=== PATIENT | female | born 1965 | race Caucasian/White ===

== ENCOUNTER → 2019-12-22 08:36 | Outpatient (BNVA) | payer SELFPAY | PROVIDERS: Family Provider Family Medicine; PCP Family Medicine; Visit Provider Family Medicine | DX: Z13.6 Encounter for screening for cardiovascular disorders (principal); E03.9 Hypothyroidism, unspecified; M18.11 Unilateral primary osteoarthritis of first carpometacarpal joint, right hand | CPT/HCPCS: 80053; 80061; 84443 ==

== ENCOUNTER 2020-03-07 08:04 | Outpatient (CLI) | payer OTHER, SELFPAY ==
--- NOTE | 2020-03-07 08:14 | MM_ITS ---
WS: [id number] BILATERAL DIGITAL SCREENING MAMMOGRAPHY WITH CAD CLINICAL INFORMATION: SCREENING HISTORY: Screening mammogram. No current complaints. COMPARISON: July 21, 2013 TECHNIQUE: Bilateral CC and MLO views. FINDINGS: The breasts are composed of heterogeneous fibroglandular density tissue, which can limit the detectio n of small underlying mass lesions. Multiple ovoid nodular densities both breasts are similar in appe arance the prior examinations. Most of these appear to represent intramammary lymph nodes and are not significantly changed since 2013. No suspicious mass, asymmetry, calcifications, or architectural di stortion. No evidence of malignancy. MM/[place] [id number] IMPRESSION: BI-RADS: 2-Benign FOLLOW UP: 1 Year Follow-up Recommend return to annual screening mammography.
== END 2020-03-07 08:05 | disposition home or self-care (01) ==
PROVIDERS: Family Provider Family Medicine; PCP Family Medicine; Visit Provider Family Medicine
DX: Z12.31 Encounter for screening mammogram for malignant neoplasm of breast (principal)
CPT/HCPCS: 77067

== ENCOUNTER → 2020-03-29 09:21 | Outpatient (BNVA) | payer SELFPAY | PROVIDERS: Family Provider Family Medicine; PCP Family Medicine; Visit Provider Family Medicine | DX: E03.9 Hypothyroidism, unspecified (principal) | CPT/HCPCS: 84443 ==

== ENCOUNTER → 2020-04-21 08:38 | Outpatient (BNVA) | payer SELFPAY | PROVIDERS: Family Provider Family Medicine; PCP Family Medicine; Visit Provider Obstetrics & Gynecology | DX: N95.0 Postmenopausal bleeding (principal) | CPT/HCPCS: 83001; 84443; 85025 ==

== ENCOUNTER → 2020-04-24 09:39 | Outpatient (BNVA) | payer SELFPAY | PROVIDERS: Family Provider Family Medicine; PCP Family Medicine; Visit Provider Obstetrics & Gynecology | DX: N95.0 Postmenopausal bleeding (principal); N85.8 Other specified noninflammatory disorders of uterus | CPT/HCPCS: 76830 ==

== ENCOUNTER → 2021-10-23 08:52 | Outpatient (BNVA) | payer OTHER, SELFPAY | PROVIDERS: Family Provider Family Medicine; PCP Family Medicine; Visit Provider Nurse Practitioner Psychiatric/Mental Health | DX: Z79.899 Other long term (current) drug therapy (principal); R45.6 Violent behavior; G24.09 Other drug induced dystonia; T50.905A Adverse effect of unspecified drugs, medicaments and biological substances, initial encounter; F33.3 Major depressive disorder, recurrent, severe with psychotic symptoms; F43.12 Post-traumatic stress disorder, chronic; F17.210 Nicotine dependence, cigarettes, uncomplicated; F15.21 Other stimulant dependence, in remission | CPT/HCPCS: 80053; 80061; 83036 ==

== ENCOUNTER → 2022-09-06 10:20 | Outpatient (BNVA) | payer SELFPAY | PROVIDERS: Family Provider Family Medicine; PCP Family Medicine; Visit Provider Family Medicine | DX: E03.9 Hypothyroidism, unspecified (principal); Z13.6 Encounter for screening for cardiovascular disorders | CPT/HCPCS: 80053; 80061; 84439; 84443; 85025 ==

== ENCOUNTER → 2022-09-13 09:01 | Outpatient (BNVA) | payer OTHER, SELFPAY | PROVIDERS: Family Provider Family Medicine; PCP Family Medicine; Visit Provider Nurse Practitioner Psychiatric/Mental Health | DX: Z79.899 Other long term (current) drug therapy (principal); Z03.89 Encounter for observation for other suspected diseases and conditions ruled out | CPT/HCPCS: 80307; 83036 ==

== ENCOUNTER → 2023-11-24 10:06 | Outpatient (BNVA) | payer BC, SELFPAY | PROVIDERS: Family Provider Family Medicine; PCP Family Medicine Adult Medicine; Visit Provider Nurse Practitioner Family | DX: J98.4 Other disorders of lung (principal); R06.09 Other forms of dyspnea | CPT/HCPCS: 71046 ==

== ENCOUNTER → 2023-11-28 14:46 | Outpatient (BNVA) | payer BC, SELFPAY | PROVIDERS: Family Provider Family Medicine; PCP Family Medicine; Visit Provider Nurse Practitioner Psychiatric/Mental Health | DX: Z79.899 Other long term (current) drug therapy (principal) | CPT/HCPCS: 80053; 80061; 83036 ==

== ENCOUNTER → 2023-12-24 10:50 | Outpatient (BNVA) | payer BC, SELFPAY | PROVIDERS: Family Provider Family Medicine; PCP Family Medicine Adult Medicine; Visit Provider Nurse Practitioner Psychiatric/Mental Health | DX: Z79.899 Other long term (current) drug therapy (principal) | CPT/HCPCS: 82306; 84439; 84443; 85025 ==

== ENCOUNTER → 2024-04-13 10:06 | Outpatient (BNVA) | payer BC, SELFPAY | PROVIDERS: Family Provider Family Medicine; PCP Family Medicine Adult Medicine; Visit Provider Nurse Practitioner Psychiatric/Mental Health | DX: Z79.899 Other long term (current) drug therapy (principal) | CPT/HCPCS: 80053; 82306; 82607; 83540; 84443; 85025 ==

== ENCOUNTER → 2024-07-12 16:03 | Outpatient (BNVA) | payer BC, SELFPAY | PROVIDERS: Family Provider Family Medicine; PCP Family Medicine; Visit Provider Family Medicine | DX: E03.9 Hypothyroidism, unspecified (principal); E55.9 Vitamin D deficiency, unspecified; L25.9 Unspecified contact dermatitis, unspecified cause; J44.9 Chronic obstructive pulmonary disease, unspecified; R63.4 Abnormal weight loss | CPT/HCPCS: 80053; 82306; 84439; 84443; 85025 ==

== ENCOUNTER → 2024-07-19 07:57 | Outpatient (BNVA) | payer BC, MEDICAID, SELFPAY | PROVIDERS: Family Provider Family Medicine; PCP Family Medicine; Visit Provider Family Medicine | DX: E03.9 Hypothyroidism, unspecified (principal); R63.4 Abnormal weight loss; E55.9 Vitamin D deficiency, unspecified | CPT/HCPCS: 80053; 82306; 84439; 84443 ==

== ENCOUNTER 2024-07-27 08:45 | Outpatient (CLI) | payer BC, MEDICAID, SELFPAY ==
--- NOTE | 2024-07-27 09:00 | CT_ITS ---
WS: [id number] LDCT LUNG CANCER SCREENING HISTORY: screening TECHNIQUE: Axial imaging performed from the apices to 1 cm below the costophrenic angles. Coronal and sagittal reformats are submitted with axial MIP series. All CT scans at [facility] use at least one of these dose optimization techniques: automated exposure control; mA and/or kV adjustment per patient size (includes targeted exams where dose is matched to clinical indication); or iterative reconstruction. DLP: 40.41 mGy.cm DIvol: Mean CTDIvol: 0.60 (mGy) COMPARISON: None available. Diagnostic quality: Satisfactory Lungs: Hyperinflated lungs. There are a few areas of scattered groundglass attenuation. Groundglass attenuation with vague solid component towards the superior segment RIGHT lower lobe measures 2.0 x 1.8 cm. Subsolid component is 0.9 cm. This is the most concerning subsolid pacification. 3 mm noncalcified nodule LEFT upper lobe, image 73 series 4. 2 mm nodule image 47 series 4 RIGHT upper lobe. 6 mm nodule RIGHT upper lobe abuts the fissure. Heart: Normal size heart with no pericardial effusion.. Other findings: Atherosclerosis aorta. Normal size pulmonary artery. No adrenal mass. Increase in thoracic kyphosis. Mild anterior wedging of a central thoracic vertebral body. CT/CT lung screening [id number] IMPRESSION: LUNG-RADS: 4B-Suspicious FOLLOW UP: PET/CT recommended OTHER FINDINGS (S MODIFIER): None.
== END 2024-07-27 08:46 | disposition home or self-care (01) ==
PROVIDERS: PCP Family Medicine; Visit Provider Family Medicine
DX: Z12.2 Encounter for screening for malignant neoplasm of respiratory organs (principal); F17.219 Nicotine dependence, cigarettes, with unspecified nicotine-induced disorders; R91.8 Other nonspecific abnormal finding of lung field; I70.0 Atherosclerosis of aorta; M40.294 Other kyphosis, thoracic region; M48.54XA Collapsed vertebra, not elsewhere classified, thoracic region, initial encounter for fracture
CPT/HCPCS: 71271

== ENCOUNTER 2024-07-30 14:49 | Outpatient (CLI) | payer BC, MEDICAID, SELFPAY ==
--- NOTE | 2024-07-30 15:00 | PETR_ITS ---
PROCEDURE INFORMATION: Exam: PET/CT Skull Base to Mid-thigh Exam date and time: 07/30/2024 3:54 PM Age: 59 years old Clinical indication: Abnormal findings; CT lung scree 07/27/24; Additional info: Right lung mass / unintentional weight loss LABS AND CLINICAL REPORTS: Glucose: 85 mg/dl Treatment strategy for malignancy (PET staging): Initial Staging (PI) TECHNIQUE: Imaging protocol: Following at least four-hour fasting and following the injection of radiopharmaceutical, low dose CT images were obtained. Then, PET images were obtained. Attenuation corrected images were constructed using the CT scan. Fused images of PET and CT were reviewed. The standardized uptake values (SUV) reported below are maximum values within a region of interest, expressed in gm/ml. Exam includes orbital meatal line to mid-thigh. SUV normalization method: BodyWeight Radiopharmaceutical: 9.28 mCi F-18 FDG (Fluorodeoxyglucose), IV. Time of imaging post radiopharmaceutical administration: 46 minutes Injection site: right ac COMPARISON: CT lung screening [id number] 07/27/2024, CT lumbar spine 06/09/2018, MRI lumbar spine 08/26/2018 FINDINGS: Brain: Normal physiologic uptake. Pharynx: No abnormal uptake. Larynx: No abnormal uptake. Lungs, pleura and trachea: 2.5 cm part solid right lower lobe opacity measures 2.6 SUV. About 2.4 x 1.3 cm non nodular shaped pure ground-glass right upper lobe opacity on axial image 84 measures 1.6 SUV. 0.8 cm ground-glass opacity nodule posteriorly in the right upper lobe on axial image 83 measures 0.8 SUV. Subcentimeter focus of higher uptake of 4.9 SUV in the right upper lobe present in the central peribronchial/perivascular location on axial image 80 with no obvious corresponding lung nodule. No pleural effusion. Heart: No abnormal uptake.There is no cardiomegaly. Coronary artery calcification is present. There is no pericardial effusion. Mediastinal space: Small linear linear focus of increased uptake of 5.5 SUV adjacent to the left posterior wall of the descending thoracic aorta at T9 level (axial image 104) is indeterminate. Esophagus: Diffusely increased uptake in the esophagus up to 6.6 SUV with no abnormal dilatation or wall thickening for clinical correlation with esophagitis. Liver: No abnormal uptake. Maximum uptake is for SUV. Gallbladder and biliary ducts: No abnormal uptake. Pancreas: No abnormal uptake. Spleen: No abnormal uptake. No splenomegaly. Adrenal glands: No abnormal uptake. No nodules. Kidneys and ureters: Normal physiologic uptake. No hydronephrosis. Bilateral nonobstructive small renal stones. Stomach and bowel: Long segment of increased uptake in the cecum and ascending colon with no corresponding CT abnormality is likely benign. Vasculature: No abnormal uptake. No aortic aneurysm. Lymph nodes: No FDG avid lymphadenopathy in the neck, chest, abdomen, pelvis, and extremities. Small calcified granulomas in normal size periportal and portacaval lymph nodes. Skeleton: Increased synovial uptake in the shoulders is likely benign. Soft tissues: No abnormal uptake in the visualized head, neck, chest, abdomen, pelvis, and extremities. Other findings: Increased uptake of 5.4 SUV is noted within the central spinal canal at T12-L1 level for the maximum length of 2.5 cm in the expected location of conus medullaris. This level of uptake is higher than expected for usual physiologic activity in the spinal cord. PET/PET skull to thigh INIT [id number] IMPRESSION: 1. 2.5 cm part solid right lower low lung opacity measures 2.6 SUV. Malignancy cannot be excluded. No abnormal uptake in other purely ground-glass opacities in the right lung. Subcentimeter focus of higher uptake of 4.9 SUV in the perihilar location in the right upper lobe with no corresponding parenchymal lung nodule is indeterminate. No FDG avid lymphadenopathy in the chest. No FDG avid findings outside of the chest concerning for metastatic disease. 2. Diffusely increased uptake in the esophagus with no abnormal dilatation or wall thickening for clinical correlation with esophagitis. 3. Small linear focus of increased uptake along the left posterior wall of the mid/lower descending thoracic aorta is of indeterminate etiology and clinical significance since no obvious masslike lesion or nodule is identified in this area. 4. The uptake in the expected location of conus medullaris of the spinal cord is slightly higher than expected for normal physiologic activity. No abnormality was present in this area on prior imaging of the lumbar spine obtained in 2019. Depending on degree of clinical suspicion this finding can be followed or further evaluated with contrast enhanced MRI.
== END 2024-07-30 14:50 | disposition home or self-care (01) ==
PROVIDERS: PCP Family Medicine; Visit Provider Family Medicine
DX: R91.8 Other nonspecific abnormal finding of lung field (principal); I25.10 Atherosclerotic heart disease of native coronary artery without angina pectoris; R93.89 Abnormal findings on diagnostic imaging of other specified body structures; N20.0 Calculus of kidney; R59.0 Localized enlarged lymph nodes
CPT/HCPCS: 78815; A9552

== ENCOUNTER 2024-08-17 06:21 | Day surgery (SDC) | payer BC, MEDICAID, SELFPAY ==
[2024-08-17 06:35] VITALS: BP 146/104; PULSE 111; RESP 16; TEMP 36.5; O2SAT 94; BMI 16.5
[2024-08-17] MEDS: sodium chloride 0.9% 1,000 ML 15 ML IV (06:49)
--- NOTE | 2024-08-17 06:51 | ANES.PREANE2 ---
Pre-Anesthetic Assessment Height/Weight: Height 5 ft 2 in Weight 90 lb Temp Pulse Resp BP Pulse Ox O2 Del Method 97.7 F 111 H 16 146/104 94 Room Air 08/17/24 06:35 08/17/24 06:35 08/17/24 06:35 08/17/24 06:35 08/17/24 06:35 08/17/24 06:35 Preop Diagnosis: Screening colonoscopy Operation Date: 08/17/24 07:30 Proposed Procedures p EGD 65122 15150 G0121, R63.4 Z12.11(Not Applicable) - Roque Lopez MD s Colonoscopy(Not Applicable) - Roque Lopez MD Was Beta Salena taken within 24 hours: N/A Was Clonidine taken within 24 hours: N/A Last intake: Intake Last Liquid Date 08/16/24 Last Liquid Time 19:30 Last Solid Date 08/15/24 Last Solid Time 19:00 Social Tobacco and No alcohol Exam alert, oriented x 3 and regular rate & rhythm Decreased breath sounds bilaterally Airway Submandibular: within normal limits Cervical ROM: within normal limits Mallampati: Class II Dentition: false Comments: Comments: No bottom teeth, dentures on top Anesthetic Plan ASA status: 3 Anesthesia: MAC Other: No prior issues with anesthesia Completed bowel prep COPD, current smoker Patient has a lung mass that she is following with oncology for. No home O2 Haldol at night Labs from June reviewed and acceptable for procedure Plan for Mac Anesthesia Medications/Allergies Home Medications ?Medication ?Instructions ?Recorded ?Confirmed ?Last Taken ?Type multivitamin 1 tab PO QAM 04/07/19 08/17/24 08/16/24 History lorazepam 1 mg tablet 1 mg PO TID #90 tabs 06/29/24 08/17/24 08/16/24 Rx haloperidol 0.5 mg tablet 0.5 mg PO BEDTIME severe agitation 07/09/24 08/17/24 08/16/24 Rx #30 tabs fluticasone 250 mcg-salmeterol 50 1 inh inhalation BID #60 ea 07/12/24 08/17/24 08/16/24 Rx mcg/dose blistr powdr for inhalation (Advair Diskus) triamcinolone acetonide 0.1 % 1 applic topical BID #80 grams 07/12/24 08/17/24 08/16/24 Rx topical cream albuterol sulfate 90 mcg/actuation 2 puff inhalation Q6H PRN 08/02/24 08/17/24 08/16/24 Rx aerosol inhaler (Ventolin HFA) shortness of breath or wheezing #8.5 grams escitalopram oxalate 20 mg tablet 20 mg PO QAM 08/16/24 08/17/24 08/16/24 History (Lexapro) valbenazine 60 mg capsule 60 mg PO QAM 08/16/24 08/17/24 08/16/24 History (Ingrezza) Allergies Allergy/AdvReac Type Severity Reaction Status Date / Time No Known Allergies Allergy Verified 08/17/24 06:33 Current Medications Generic Name Dose Route Start Last Admin Trade Name Freq PRN Reason Stop Dose Admin Sodium Chloride 1,000 mls @ 15 mls/hr 08/17/24 06:24 08/17/24 06:49 Sodium Chloride 0.9% IV 08/18/24 06:23 15 mls/hr .Q24H PRN Administration COLONOSCOPY FLUIDS PFSH Anesthesia Medical History Bereavement Loss of 13 yr grandson, by suicide 05/13/23 Generalized anxiety disorder Tardive dyskinesia prescribed and taking Ingrezza Other stimulant dependence, in remission methamphetamines, in sustained remission, September 2019 Psychiatric care Hypothyroidism Violent behavior History of Major depressive disorder, recurrent episode, severe with mood-congruent psychotic features Nicotine dependence, cigarettes, uncomplicated Chronic post-traumatic stress disorder Surgical History S/P appendectomy performed with section H/O section Family History Mother Diabetes Sister Thyroid disease Denies family history of Colon cancer Ovarian cancer Clotting disorder Heart disease Hyperlipidemia Breast cancer Anesthesia complication Bleeding disorder Hypertension Uterine cancer Stroke Social History Smoking and tobacco/nicotine status: current every day tobacco/nicotine user cigarettes Alcohol intake: current Alcohol intake frequency: holidays/special occasions only Alcohol type: hard liquor Substance/Drug Use: never
--- NOTE | 2024-08-17 06:57 | W.PM.OPSUD ---
Surgery/Procedure H&P Update DATE OF PROCEDURE: August 17, 2024 DATE H&P PERFORMED: 07/22/24 H&P UPDATE INFORMATION: I have reviewed H&P completed within last 30 days, I have examined patient prior to procedure and Changes to prior documentation as noted here CHANGES TO PREVIOUS DOCUMENTATION: EGD will be done as well for unintentional weight loss. Risks and benefits discussed. PREOP DIAGNOSIS: Screening colonoscopy, unquantified weight loss PLANNED PROCEDURE: Operation Date: 08/17/24 07:30 Proposed Procedures p EGD [id number] 08906 G0121, R63.4 Z12.11(Not Applicable) - Roque Lopez MD s Colonoscopy(Not Applicable) - Roque Lopez MD
[2024-08-17 08:36] VITALS: BP 135/80; PULSE 72; RESP 16; TEMP 36.3; O2SAT 100
[2024-08-17 08:49] VITALS: BP 140/84; PULSE 69; RESP 16; TEMP 36.2; O2SAT 97
--- NOTE | 2024-08-17 09:12 | ANE.PACU2 ---
Inpatient post-anesthesia follow up: Airway intact: Yes Vital signs: Temperature 97.2 F Pulse Rate 69 Respiratory Rate 16 Blood Pressure 140/84 Pulse Oximetry 97 Oxygen Delivery Me thod Room Air Oxygen Flow Rate Fraction of Inspir ed Oxygen Hydration adequate: Yes Nausea and vomiting: No Pain level: 1 Mental status: Baseline
== END 2024-08-17 09:12 | disposition home or self-care (01) ==
PROVIDERS: Student in an Organized Health Care Education/Training Program; PCP Family Medicine; Visit Provider Student in an Organized Health Care Education/Training Program
PROC: 0DJ08ZZ Inspection of Upper Intestinal Tract, Via Natural or Artificial Opening Endoscopic (ICD-10-PCS; principal; 2024-08-17 07:30)
PROC: 0DJD8ZZ Inspection of Lower Intestinal Tract, Via Natural or Artificial Opening Endoscopic (ICD-10-PCS; CPT 45378; 2024-08-17 07:30)
DX: Z12.11 Encounter for screening for malignant neoplasm of colon (principal); D12.2 Benign neoplasm of ascending colon; D12.8 Benign neoplasm of rectum; K29.31 Chronic superficial gastritis with bleeding; B96.81 Helicobacter pylori [H. pylori] as the cause of diseases classified elsewhere; E03.9 Hypothyroidism, unspecified; R63.4 Abnormal weight loss; J44.9 Chronic obstructive pulmonary disease, unspecified; F17.210 Nicotine dependence, cigarettes, uncomplicated; Z79.899 Other long term (current) drug therapy
CPT/HCPCS: 43239; 45380; 45385; 84132; 88305; 88342; J2704; J3490; J7030; J9999

== ENCOUNTER 2024-08-25 08:13 | Outpatient (CLI) | payer OTHER, SELFPAY ==
[2024-08-25 08:27] VITALS: PULSE 70; RESP 18; O2SAT 97
[2024-08-25] MEDS: albuterol 2.5 mg/3 mL Neb INHALATION (08:27)
== END 2024-08-25 08:14 | disposition home or self-care (01) ==
LOC: RT 08:14
PROVIDERS: PCP Family Medicine; Visit Provider Family Medicine
DX: Z02.71 Encounter for disability determination (principal); J44.9 Chronic obstructive pulmonary disease, unspecified
CPT/HCPCS: 94060; 94729; J7613

== ENCOUNTER 2024-09-27 13:10 | Oncology outpatient (recurring) (ONCR) | payer BC, MEDICAID, SELFPAY ==
--- NOTE | 2024-09-27 15:42 | N.ONRAD NP_ITS ---
Radiation Oncology New Patient Visit Patient: Imelda Wagner MR#: [id number] : 1965> Age: 59> Sex: Female> Dictated by: Ed Perry DO/AYANA/BRITT Date of Service: 09/27/2024 Referring Physician(s) : YIFAN Diagnosis: C34.2, RT MIDDLE LOBE, 2.5CM(2.6), -PET LN DS, POOR PULM RESERVE, 20 STEP DYSPNEA, 4OPSYH ACTIVE, KPS 70, -H/F/C/NS, +WT LOSS STAGE: T1N0M0 ICD-10: C34.2 Radiotherapy to date: Summary > No prior radiation therapy. Chief Complaint / History of Present Illness: This is a pleasant 59-year-old female who looks much greater than stated age. She smells of smoke as does the room. She is a chronic active smoker of 40 pack years that underwent screening CT on July 27 and was found to have a right RLL mass measuring 2 x 1.8 cm solid component of 0.9 cm PET/CT on 07/30/2024 shows a 2.5 cm partially solid spiculated RLL mass (2.6) she also has some mild diffuse increased uptake in the esophagus. Upper and lower GI GI testing was negative for abnormality other than mucosal irritation. Patient has a 20 step dyspnea. Resting she has SaO2 of 97. Current Medications: - Last Reconciled 09/27/24 by Jenny Silva MA albuterol sulfate 90 mcg/actuation (Ventolin HFA) 2 puffs inhalation Q6H PRN escitalopram oxalate (Lexapro) 20 mg PO QAM fluticasone propion-salmeterol 250-50 mcg/dose (Advair Diskus) 1 inh inhalation BID haloperidol 0.5 mg PO BEDTIME lorazepam 1 mg PO TID multivitamin 1 tab PO QAM sucralfate 10 mL PO BID 30 days tiotropium bromide (Spiriva with HandiHaler) 1 cap inhalation DAILY triamcinolone acetonide 0.1% 1 applic topical BID valbenazine (Ingrezza) 60 mg PO QAM Allergies: No Known Allergies No Known Allergies Allergy (Verified 09/27/24 13:13) Medical History: Bereavement Loss of 13 yr grandson, by suicide 05/13/23 Generalized anxiety disorder Tardive dyskinesia prescribed and taking Ingrezza Other stimulant dependence, in remission methamphetamines, in sustained remission, September 2019 Psychiatric care Hypothyroidism Violent behavior History of Major depressive disorder, recurrent episode, severe with mood-congruent psychotic features Nicotine dependence, cigarettes, uncomplicated Chronic post-traumatic stress disorder Surgical History: Surgical History S/P appendectomy performed with section H/O section Family History: Mother Diabetes Sister Thyroid disease Denies family history of Colon cancer Ovarian cancer Clotting disorder Heart disease Hyperlipidemia Breast cancer Anesthesia complication Bleeding disorder Hypertension Uterine cancer Stroke Social History: Smoking and tobacco/nicotine status: current every day tobacco/nicotine user cigarettes X 40 YEARS Alcohol intake: current Alcohol intake frequency: holidays/special occasions only Alcohol type: hard liquor Substance/Drug Use: never Dietary Habits Caffeine: Yes Current Complaints / Review of Systems: . As above Vital Signs: Performed on 09/27/2024 2:15 PM BMI - 16.096 kg/m2 (low), Height - 62 in, Weight - 88 lbs, Temperature - 98.7 f, Pulse - 114 /min (high), Respiration - 17 /min, O2 Sat - 96 %, Pain - 0, Fatigue - 0 and BP - 123/ 80 mm(hg). Physical Exam:AAO X3. Looks much greater than stated age. Head is normocephalic without masses. Lungs clear to auscultation no intercostal retraction abdomen soft nontender with no hepatosplenomegaly. Extremities intact x 4. No peripheral edema. Performance Status: KPS 70 Pathology: TT F1+ adenocarcinoma Lab: Imaging: See HPI Impression: C34.2, RT MIDDLE LOBE, 2.5CM(2.6), -PET LN DS, POOR PULM RESERVE, 20 STEP DYSPNEA, 4OPSYH ACTIVE, KPS 70, -H/F/C/NS, +WT LOSS STAGE: T1N0M0 ICD-10: C34.2 Plan: Options were discussed with the patient and family. All questions answered Consider SBRT to the RML lesion Plan 5000 cGy in [address] SIM 09/28/2024. Commence treatment on 10/05/2024 Signed by: 09/27/2024 3:40:45 PM <<Signature on File>> Time spent with patient/family: 60 minutes CPT Code: CPT Code:
== END 2024-09-27 23:59 | disposition home or self-care (01) ==
PROVIDERS: PCP Family Medicine; Visit Provider Internal Medicine Medical Oncology
DX: Z53.9 Procedure and treatment not carried out, unspecified reason (principal)

== ENCOUNTER 2024-10-13 10:00 | Oncology outpatient (recurring) (ONCR) | payer BC, MEDICAID, SELFPAY ==
--- NOTE | 2024-10-12 12:11 | ONCRAD TMN_ITS ---
Radiation Oncology Weekly Treatment Management Patient: Imelda Wagner MR#: [id number] : 1965 Attending Physician: Dr. Rosales Mcfadden Date of Service: 10/12/2024 Referring Physician(s) : Diagnosis: C34.2 - Malignant neoplasm of middle lobe, bronchus or lung, Diagnosed 09/01/2024 (Active) Radiotherapy to date: Course: SBRT [facility] 2024, Treatment Site: [facility] SBRT, Ref. ID: [facility]_SBRT, Energy: 6X, Dose/Fx (cGy): 1,200, #Fx: 3 / 4, Dose Correction (cGy): 0, Total Dose Delivered (cGy): 3,600, Start Date: 10/06/2024, Elapsed Days: 6 Reason for visit: The patient is being seen today as part of their regularly scheduled weekly on treatment visits to assess for acute toxicities from radiotherapy. Review of Systems: Inactive at home. Watches TV or sleeps. Chronic fatigued. Seen by primary care for this in the past. Smokes 1 ppd. Vital Signs: Performed on 10/12/2024 10:38 AM BMI - 16.278 kg/m2 (low), Height - 62 in, Weight - 89 lbs, Temperature - 97.5 f, Pulse - 88 /min, Respiration - 16 /min, O2 Sat - 96 %, Pain - 0, Fatigue - 0 and BP - 133/ 86 mm(hg). Physical Exam: omtted. Imaging: Radiation therapy imaging related to accurate target localization (i.e. KV, MV and CBCT) was reviewed. Appropriate changes, if any, were made to ensure treatment accuracy. Plan: Good tolerance of treatment. Continue as planned. Begged her to quit smoking. Signed by: Dr. Rosales Mcfadden 10/12/2024 12:09:35 PM
== END 2024-10-13 23:59 | disposition home or self-care (01) ==
PROVIDERS: PCP Family Medicine; Visit Provider Radiology Radiation Oncology
DX: Z51.0 Encounter for antineoplastic radiation therapy (principal); C34.2 Malignant neoplasm of middle lobe, bronchus or lung
CPT/HCPCS: 77300; 77301; 77334; 77336; 77338; 77373; 77470

== ENCOUNTER 2024-10-27 09:37 | Outpatient (CLI) | payer BC, SELFPAY ==
--- NOTE | 2024-10-27 09:30 | MR_ITS ---
WS: [id number] MRI BRAIN WITH AND WITHOUT CONTRAST HISTORY: G24.01 - Drug induced subacute dyskinesia COMPARISON: None available. TECHNIQUE: Multiplanar imaging performed through the brain with MultiHance 8 ml's IV. Normal diffusion imaging. No ischemia. Numerous T2 and FLAIR signal hyperintensities throughout the supratentorial white matter. These are predominantly in the frontal, temporal and parietal lobes. White matter lesions extend to the vertex. Mild small vessel disease also present in the rodríguez bilaterally. No hemorrhage. Normal hippocampal formations. Ventricles and extra-axial spaces are normal. Clivus and pituitary gland are normal. Visualized posterior fossa and brainstem are also normal. Postcontrast images are negative for masses or vascular malformations. Dural venous sinuses are normal. Paranasal sinuses: Well aerated with no significant disease. Mastoid air cells: Normal. Calvarium and scalp: Normal. MR/MR head wo/w con [id number] IMPRESSION: 1. No diffusion abnormality or hemorrhage. 2. Moderate scattered T2 hyperintensities in the white matter. Differential in cludes small vessel changes, hypertension, diabetes and migraines. 3. No prior large territory infarct. 4. No enhancing masses or metastatic disease to the brain.
--- NOTE | 2024-10-27 10:15 | MR_ITS ---
WS: [id number] MRI CERVICAL SPINE with and without contrast HISTORY: G24.01 - Drug induced subacute dyskinesia COMPARISON: None available. Technique: Multiplanar, multisequence noncontrast imaging of the cervical spine. Postcontrast imaging MultiHance 8 mL. Curvature and scoliosis and increased lordosis throughout the cervical spine. No marrow edema or fracture. Signal within the cervical cord is normal. Visualized posterior fossa is unremarkable. Craniocervical junction, C1 and C2 relationship, odontoid process and soft tissues are normal. C2-C3: Small central disc protrusion with facet arthritis. No significant stenosis. C3-C4: Diffuse annular disc bulging with a small RIGHT foraminal disc osteophyte complex. Mild central and LEFT foraminal stenosis. Moderate RIGHT foraminal stenosis. C4-C5: Diffuse annular disc bulging with effacement of CSF. Bilateral foraminal disc osteophyte complexes. Moderate central and bilateral foraminal stenosis. C5-C6: Diffuse annular disc bulging and osteophytic ridging. Effacement of ventral CSF. Bilateral foraminal disc osteophyte complexes greater on the RIGHT. Moderate central and LEFT foraminal stenosis. Severe RIGHT foraminal stenosis. C6-C7: Diffuse annular disc bulging and osteophytic ridging. Mild central and LEFT foraminal stenosis. Moderate RIGHT foraminal stenosis due to disc osteophyte disease. C7-T1: No stenosis. Paravertebral soft tissues are negative. No discitis or osteomyelitis. No enhancing masses. MR/MR cervical spine wo/w [id number] IMPRESSION: 1. Scoliosis cervical spine with degenerative disc disease and osteophytosis. 2. C4-5: Moderate central and bilateral foraminal stenosis due to disc and ost eophyte disease. 3. C5-6: Moderate central and LEFT foraminal stenosis. Severe RIGHT foraminal stenosis due to disc osteophyte complex. 4. C6-7: Mild central and LEFT foraminal stenosis. Moderate RIGHT foraminal st enosis due to disc osteophyte disease. 5. Moderate RIGHT foraminal stenosis at C3-4 with mild central LEFT foraminal stenosis. 6. No signal abnormality within the cord. Most significant central stenosis at C5-6. 7. No enhancing masses or soft tissue.
[2024-10-27] MEDS: gadobenate dimeglumine 20 mL vial IV (10:39)
== END 2024-10-27 09:38 | disposition home or self-care (01) ==
PROVIDERS: PCP Family Medicine; Visit Provider Psychiatry & Neurology Neurology
DX: G24.01 Drug induced subacute dyskinesia (principal); M50.322 Other cervical disc degeneration at C5-C6 level; M25.78 Osteophyte, vertebrae; M48.02 Spinal stenosis, cervical region; M47.892 Other spondylosis, cervical region
CPT/HCPCS: 70553; 72156

== ENCOUNTER 2024-11-01 07:29 | Outpatient (CLI) | payer BC, SELFPAY ==
--- NOTE | 2024-11-01 08:45 | MR_ITS ---
WS: [id number] MRI LUMBAR SPINE WITH CONTRAST TECHNIQUE: Sagittal T1, T2 and STIR imaging. Axial T1 and T2 imaging. Post gadolinium imaging was obtained. CLINICAL INFORMATION: G24.01 - Drug induced subacute dyskinesia COMPARISON: MRI 2019 FINDINGS: Mild lumbar curve. No acute compression. No high-grade central canal stenosis. Disc bulging worse at L3-L4 and L4-L5. Small annular fissure L4-5. No abnormal gadolinium enhancement. L1-L2: Mild annular bulging. Mild facet arthropathy. Spinal canal and foramen are patent. L2-L3: Mild annular bulging. Mild facet arthropathy. Small bilateral foraminal protrusions with mild bilateral foraminal narrowing. L3-L4: Mild annular bulging. Narrowing of the subarticular recess bilaterally. Moderate facet arthropathy. Small LEFT foraminal protrusion with mild LEFT foraminal narrowing. This is progressed compared to previous. L4-L5: Mild annular bulging. Mild central canal stenosis with impingement of traversing L5 nerve roots RIGHT greater than LEFT. Moderate facet arthropathy. Bilateral foraminal protrusions worse on the RIGHT with impingement on the exiting RIGHT greater than LEFT L4 nerve roots. L5-S1: Mild disc bulging. Slight contact of the traversing S1 nerve roots bilaterally. Foramen are patent. Mild facet arthropathy. Visualized pelvic bony structures: Normal. Paravertebral soft tissues: Normal. MR/MR lumbar spine wo/w con [id number] IMPRESSION: 1. Mild lumbar curve. No acute compression. No abnormal gadolinium enhancement . 2. Mild central canal stenosis L4-5 with impingement of the traversing L5 nerv e roots bilaterally similar to previous. 3. RIGHT L4-5 foraminal protrusion impinges the exiting RIGHT L4 nerve root wi th moderate RIGHT foraminal narrowing and a small annular fissure. This was pre sent previously. 4. Tiny LEFT foraminal protrusion L3-4 with mild LEFT foraminal narrowing appe ars slightly progressed 5. Disc bulging L5-S1 slightly contacts the traversing S1 nerve roots. 6. No other significant interval changes.
[2024-11-01] MEDS: gadobenate dimeglumine 20 mL vial 8 ML IV (09:26)
--- NOTE | 2024-11-01 09:30 | MR_ITS ---
WS: [id number] MRI THORACIC SPINE WITH CONTRAST TECHNIQUE: Sagittal T1, T2 and STIR imaging. Axial T2 imaging. Post gadolinium imaging was obtained. CLINICAL INFORMATION: G24.01 - Drug induced subacute dyskinesia COMPARISON: None. FINDINGS: Moderate thoracic kyphosis. No acute compression. No high-grade central canal stenosis. Cord signal is normal. Small RIGHT paracentral protrusion T6-T7 with slight indentation on the thoracic cord. Tiny LEFT paracentral protrusion T7-T8. LEFT paracentral protrusion T8-T9 with slight contact of the LEFT ventral thoracic cord. Tiny RIGHT paracentral protrusion T9-T10. Moderate facet arthropathy lower thoracic spine. Normal caliber descending thoracic aorta. MR/MR thoracic spine wo/w [id number] IMPRESSION: 1. Moderate thoracic kyphosis. No acute compression. 2. Cord signal is normal. 3. Small disc protrusions in the mid thoracic spine with slight contact of the thoracic cord at RIGHT T6-7 and LEFT T8-T9 without significant central canal s tenosis. 4. Moderate facet arthropathy lower thoracic spine. 5. Few partially visualized lung nodules and opacities. This can be followed u p with chest CT. 6. No abnormal gadolinium enhancement.
== END 2024-11-01 07:30 | disposition home or self-care (01) ==
LOC: RAD 07:30
PROVIDERS: PCP Family Medicine; Visit Provider Psychiatry & Neurology Neurology
DX: G24.01 Drug induced subacute dyskinesia (principal); M40.294 Other kyphosis, thoracic region; M51.24 Other intervertebral disc displacement, thoracic region; M46.94 Unspecified inflammatory spondylopathy, thoracic region; R91.8 Other nonspecific abnormal finding of lung field; M48.061 Spinal stenosis, lumbar region without neurogenic claudication; M51.87 Other intervertebral disc disorders, lumbosacral region; M51.26 Other intervertebral disc displacement, lumbar region
CPT/HCPCS: 72157; 72158

== ENCOUNTER → 2024-11-22 14:44 | Outpatient (BNVA) | payer MEDICARE, MEDICAID, SELFPAY | PROVIDERS: PCP Family Medicine; Visit Provider Anesthesiology Pain Medicine | DX: M47.812 Spondylosis without myelopathy or radiculopathy, cervical region (principal); F41.1 Generalized anxiety disorder; F43.12 Post-traumatic stress disorder, chronic; G24.01 Drug induced subacute dyskinesia | CPT/HCPCS: 99204 ==

== ENCOUNTER → 2024-12-02 06:42 | Outpatient (BNVA) | payer MEDICAID, SELFPAY | PROVIDERS: PCP Family Medicine; Referring Provider Psychiatry & Neurology Neurology; Visit Provider Specialist | DX: G24.01 Drug induced subacute dyskinesia (principal) | CPT/HCPCS: 95819 ==